=== PATIENT | female | born 1970 | race Asian ===

== ENCOUNTER → 2024-02-14 | Outpatient (CLI) | payer BC ==
[2024-02-14 09:18] LABS: CARBON DIOXIDE 26 mEq/L (21-32); CHLORIDE 103 mEq/L (98-107); POTASSIUM 3.5 mEq/L (3.5-5.1); SODIUM 138 mEq/L (136-145)
[2024-02-14 09:19] LABS: CALCIUM 9.8 mg/dL (8.7-10.4)
[2024-02-14 09:24] LABS: CREATININE 0.6 mg/dL (0.6-1.0); GLUCOSE 145 mg/dL (70-105); TRIGLYCERIDE 55 mg/dL (0-150); UREA NITROGEN BLOOD 17 mg/dL (9-23)
[2024-02-14 09:25] LABS: ALANINE AMINOTRANSFERASE 18 IU/L (10-49); C REACTIVE PROTEIN HIGH SENS 0.53 mg/l (<1.00); LDL CHOLESTEROL 150 mg/dL (5-100)
[2024-02-14 09:26] LABS: ALBUMIN 4.9 g/dL (3.2-4.8); ASPARTATE AMINOTRANSFERASE 21 IU/L (<34); BILIRUBIN TOTAL 0.5 mg/dL (0.1-1.0); CHOLESTEROL 234 mg/dL (<200); CREATINE KINASE 176 IU/L (34-145); HDL CHOLESTEROL 89 mg/dL (>65); PROTEIN TOTAL 7.3 g/dL (6.0-8.3)
[2024-02-14 09:28] LABS: THYROID STIMULATING HORMONE < 0.10 uIU/mL (0.55-4.78)
[2024-02-15 09:11] LABS: *T3 UPTAKE 37 % (24-39); ANTI-NUCLEAR ANTIBODIES DIRECT Negative (Negative); VITAMIN D 25-OH 33.2 ng/mL (30.0-100.0)
[2024-02-16 13:11] LABS: THYROXINE BINDING GLOBULIN 15 ug/mL (13-39)
== END | disposition home or self-care (01) ==
LOC: LAB 02-13 13:08
PROVIDERS: ATTEND Internal Medicine Critical Care Medicine
DX: Z00.00 Encounter for general adult medical examination without abnormal findings (principal)
CPT/HCPCS: 36415; 80053; 80061; 82306; 82550; 84442; 84443; 84479; 86038; 86141